=== PATIENT | male | born 1965 | race Caucasian/White ===

== ENCOUNTER 2016-12-25 07:32 | Day surgery (SDC) | payer BC ==
[~2016-12-25] VITALS: Ht 175.3 cm; Wt 90.0 kg
[2016-12-25] VITALS (13 sets, daily range): BP systolic 114–154; BP diastolic 58–71; PULSE 52–65; RESP 16–22; Ht 175.3 cm; Wt 90.0 kg
[2016-12-25] MEDS ORDERED: PROPOFOL 20 ML ONE (09:27)
[2016-12-25] MEDS ORDERED: MIDAZOLAM 1 MG/ML 2 ML INJ ONE (09:27)
[2016-12-25] MEDS ORDERED: CEFAZOLIN 1 GM INJ ONE (09:27)
[2016-12-25] MEDS ORDERED: LIDOCAINE 2% (SDV) 5 ML INJ ONE (09:27)
[2016-12-25] MEDS ORDERED: FENTAnyl 50 MCG/ML VIAL ONE (09:27)
[2016-12-25] MEDS ORDERED: FENTAnyl 50 MCG/ML VIAL IV PRN (09:30)
[2016-12-25] MEDS ORDERED: MEPERIDINE 25 MG INJ IV PRN (09:30)
[2016-12-25] MEDS ORDERED: SOD CHLORIDE 0.9% 1,000 ML IV SCH (09:30)
[2016-12-25] MEDS ORDERED: OXYCODONE/ACETAMINOPHEN (5/325) TAB PO PRN ×2 (09:30)
[2016-12-25] MEDS ORDERED: ONDANSETRON 4 MG INJ IV PRN ×2 (09:30→13:00)
[2016-12-25] MEDS ORDERED: CEFAZOLIN 2 GM/50 ML (PMX) 50 ML IVPB ONE (09:30)
[2016-12-25] MEDS ORDERED: HYDROmorphONE (0.2 MG/ML) 10ML SYG IV PRN ×2 (09:30)
[2016-12-25] MEDS ORDERED: PROCHLORPERAZINE 10 MG INJ IV PRN (09:30)
[2016-12-25] MEDS ORDERED: DIPHENHYDRAMINE 50 MG INJ IV PRN (09:30)
[2016-12-25] MEDS ORDERED: BUPIVACAINE 0.25%/EPI (SDV) 10 ML INJ ONE (10:41)
[2016-12-25] MEDS ORDERED: POLYMYXIN/BACITRACIN 1L IRRIG ONE (10:41)
--- NOTE | 2016-12-25 10:41 | HPN ---
Date/Time of Note Date/Time of Note DATE: 12/25/16 TIME: 10:41 Interval H&P Admission Note Pt. seen H&P reviewed: No system changes BOSTON AGARWAL MD Dec 25, 2016 10:41
[2016-12-25] MEDS ORDERED: SUCCINYLCHOLINE CHLORIDE 100 MG/5 ML SYG IV ONE (11:09)
[2016-12-25] MEDS ORDERED: ROCURONIUM 50 MG INJ ONE (11:09)
[2016-12-25] MEDS ORDERED: DEXAMETHASONE 4 MG/ML 1 ML INJ ONE (11:10)
[2016-12-25] MEDS ORDERED: METOCLOPRAMIDE 10 MG INJ ONE (11:10)
[2016-12-25] MEDS ORDERED: ONDANSETRON 4 MG INJ ONE (11:10)
[2016-12-25] MEDS ORDERED: NEOSTIGMINE 3 MG/3 ML SYRINGE ONE (11:44)
[2016-12-25] MEDS ORDERED: KETOROLAC 30 MG INJ ONE (11:44)
[2016-12-25] MEDS ORDERED: GLYCOPYRROLATE 0.4 MG INJ ONE (11:44)
--- NOTE | 2016-12-25 12:43 | OPR ---
Date/Time of Note Date/Time of Note DATE: 12/25/16 TIME: 12:38 Operative Report Procedure Date: Dec 25, 2016 Preoperative Diagnosis Right inguinal hernia without obstruction or gangrene Postoperative Diagnosis Right inguinal hernia without obstruction or gangrene Operation Performed 1. Repair of right inguinal hernia with mesh 2. Right ilioinguinal nerve block Surgeon: BOSTON AGARWAL MD Anesthesia Type: general Anesthesiologist: KRISTEN CHAVIRA MD Estimated Blood Loss: minimal Transfusion Required: no Specimen: none Grafts/Implants Ethicon ultra pro plug and patch size medium Complications: no Pt Condition Post Procedure: stable Disposition: PACU Indications Patient is a 51-year-old gentleman who presented to the office complaining of a painful right groin bulge. He was diagnosed on clinical exam as having a right inguinal hernia. This was confirmed via an ultrasound study. The patient was scheduled for right inguinal hernia repair with mesh; possible open to prevent sequelae of hernia disease which include, but are not limited to: Incarceration and strangulation. All risks and benefits of the procedure including but not limited to: Wound infection, excessive bleeding, postoperative seroma/hematoma formation, nerve injury which may be temporary versus permanent, injury to the reproductive organs including the vas deferens and the testicle which may lead to testicular atrophy, injury to intra-abdominal organs necessitating subsequent operation, hernia recurrence, chronic pain, etc. were all explained to the patient full detail. The patient fully understood and wished to proceed with the procedure. Informed consent was therefore obtained. Operative\Procedure Findings Medium size indirect inguinal hernia defect. Procedure Description The patient was brought to the operating room and placed supine on the operating table. Bilateral sequential compression devices were placed on both lower extremities. A dose of broad-spectrum perioperative intravenous antibiotics was given. After the induction of smooth general anesthesia the patient's abdomen and bilateral groins were prepped and draped in standard surgical fashion. After performance of the surgical timeout 0.25% Marcaine with epinephrine was injected over the area of the incision. Incision was then made using a 15 blade scalpel from the right pubic tubercle towards the right anterior superior iliac spine. Incision was carried down through the skin into the subcutaneous tissues using Bovie electrocautery. Jennifer's fascia was incised and the aponeurosis of the external oblique muscle was reached. The aponeurosis of the external oblique muscle was then incised in the direction of its fibers using a 15 blade scalpel and further opened using Metzenbaum scissors. The ilioinguinal nerve was identified on top of the spermatic cord. It was isolated and preserved throughout the entirety of the procedure. Using blunt dissection the spermatic cord was then mobilized off of the floor of the inguinal canal and encircled using a Trego drain. There was some scarring of the cord to the floor of the inguinal canal. It took some effort to be able to be lifted off of the floor and isolated. All of the structures of the cord were identified and preserved throughout the entirety of the of the procedure. Cremasteric muscles were incised and dissection of the cord was begun. A moderate sized indirect hernia sac was identified. It was dissected off of the cord. Dissection was continued towards the neck of the hernia. The sac was then reduced back into the intra-abdominal cavity. The indirect hernia defect was then repaired using a medium sized Ethicon ultra pro plug. The plug was sutured in place using interrupted 3-0 Vicryl sutures. An onlay mesh was then used to reconstruct the floor of the inguinal canal. It was secured in place using interrupted 2-0 Novafil sutures. Both the plug and the mesh were soaked in antibiotic irrigation prior to placement in the field. A slit was made in the mesh to accommodate the spermatic cord. With the repair complete it was examined and noted to be hemostatic and tension-free. The wound cavity was then irrigated with more antibiotic containing irrigation. Spermatic cord was then placed back into its anatomical position. The aponeurosis of the external oblique muscle was then reapproximated using a running 3-0 Vicryl suture. Incision was then closed in layers using a running 3-0 Vicryl suture for the Jennifer's fascia. The skin was then reapproximated using 4-0 Monocryl suture in a running subcuticular fashion. Attention was then turned to the right ilioinguinal nerve block. 10 cc of 0.25% Marcaine with epinephrine was then injected in a radial fashion approximately 2 fingerbreadths medial and inferior to the right anterior superior iliac spine. Further local anesthesia was then injected around the incision site. Incision was cleaned and Dermabond was applied. The patient was awoken from anesthesia and transferred to the recovery room in stable condition. Both testicles were palpated and noted to be in their anatomical positions at the end of the case. All counts were correct at the end of the case 2. BOSTON AGARWAL MD Dec 25, 2016 12:43
[2016-12-25] MEDS ORDERED: KETOROLAC 30 MG INJ IV PRN (13:00)
[2016-12-25] MEDS ORDERED: morphine 2 MG INJ IV PRN (13:00)
[2016-12-25] MEDS ORDERED: IBUPROFEN 600 MG TAB PO PRN (13:00)
[2016-12-25] MEDS ORDERED: HYDROCODONE/APAP (5/325) TAB PO PRN ×2 (13:00)
== END 2016-12-25 15:30 | disposition home or self-care (01) ==
LOC: SDS 07:32
PROVIDERS: ATTEND Surgery
DX: K40.90 Unilateral inguinal hernia, without obstruction or gangrene, not specified as recurrent (principal); I10 Essential (primary) hypertension; E03.9 Hypothyroidism, unspecified; E78.5 Hyperlipidemia, unspecified
CPT/HCPCS: 49505; C1781; J0690; J1100; J1885; J2250; J2405; J2710; J2765; J3010; Z7512; Z7610; J7999